=== PATIENT | female | born 1995 | race Caucasian/White ===

== ENCOUNTER 2017-07-21 02:51 | Inpatient (IN) | payer OTHER ==
[~2017-07-21] VITALS: Ht 170.2 cm; Wt 66.3 kg
[2017-07-21 02:58] VITALS: BP 128/81; PULSE 95; RESP 18; TEMP 98.3; O2SAT 98
--- NOTE | 2017-07-21 03:25 | PD ---
HPI Chief Complaint: Psychiatric Symptoms Time Seen by Provider: 03:15 Travel History International Travel<30 days: No Contact w/Intl Traveler<30days: No Traveled to known affect area: No History of Present Illness HPI 22-year-old female with history of depression presents emergency department under Carrasco act for psychiatric evaluation. Patient states she has been having worsening depression over several weeks. She has been having suicidal thoughts. She does not want to discuss the plan. Denies any medical needs. Denies any illicit drug use. Patient has no other symptoms to report. PFSH Past Medical History Anemia: Yes Asthma: No Bipolar Disorder: No Anxiety: No Depression: No Diabetes: No Hypertension: No Shingles: No ?: Unknown Past Surgical History Surgical History: No Previous Surgery Social History Alcohol Use: No Tobacco Use: No Substance Use: No Allergies-Medications (Allergen,Severity, Reaction): Coded Allergies: No Known Allergies (Unverified , 07/21/17) Reported Meds & Prescriptions Reported Meds & Active Scripts Active No Active Prescriptions or Reported Medications Review of Systems Except as stated in HPI: all other systems reviewed are Neg Physical Exam Narrative GENERAL: Well-nourished, well-developed female patient in no acute distress. SKIN: Focused skin assessment warm/dry. HEAD: Normocephalic. EYES: No scleral icterus. No injection or drainage. NECK: Supple, trachea midline. No JVD or lymphadenopathy. CARDIOVASCULAR: Regular rate and rhythm without murmurs, gallops, or rubs. RESPIRATORY: Breath sounds equal bilaterally. No accessory muscle use. GASTROINTESTINAL: Abdomen soft, non-tender, nondistended. MUSCULOSKELETAL: No cyanosis, or edema. BACK: Nontender without obvious deformity. No CVA tenderness. Data Data Last Documented VS Vital Signs Date Time Temp Pulse Resp B/P (MAP) Pulse Ox O2 Delivery O2 Flow Rate FiO2 07/21/17 02:58 98.3 95 18 128/81 (97) 98 Orders Orders Complete Blood Count With Diff (07/21/17 03:03) Comprehensive Metabolic Panel (07/21/17 03:03) Thyroid Stimulating Hormone (07/21/17 03:03) Ed Urine Pregnancytest Poc (07/21/17 03:03) Psych Screen (07/21/17 03:03) Drug Screen, Random Urine (07/21/17 03:03) Alcohol (Ethanol) (07/21/17 03:03) Salicylates (Aspirin) (07/21/17 03:03) Tylenol (Acetaminophen) (07/21/17 03:03) Ibuprofen (Motrin) (07/21/17 04:45) Labs Laboratory Tests Test 07/21/17 03:45 White Blood Count 7.5 TH/MM3 Red Blood Count 4.29 MIL/MM3 Hemoglobin 12.0 GM/DL Hematocrit 35.7 % Mean Corpuscular Volume 83.2 FL Mean Corpuscular Hemoglobin 28.0 PG Mean Corpuscular Hemoglobin Concent 33.7 % Red Cell Distribution Width 14.4 % Platelet Count 388 TH/MM3 Mean Platelet Volume 7.3 FL Neutrophils (%) (Auto) 50.3 % Lymphocytes (%) (Auto) 39.6 % Monocytes (%) (Auto) 7.9 % Eosinophils (%) (Auto) 1.4 % Basophils (%) (Auto) 0.8 % Neutrophils # (Auto) 3.8 TH/MM3 Lymphocytes # (Auto) 3.0 TH/MM3 Monocytes # (Auto) 0.6 TH/MM3 Eosinophils # (Auto) 0.1 TH/MM3 Basophils # (Auto) 0.1 TH/MM3 CBC Comment DIFF FINAL Differential Comment Blood Urea Nitrogen 10 MG/DL Creatinine 0.73 MG/DL Random Glucose 85 MG/DL Total Protein 8.4 GM/DL Albumin 4.4 GM/DL Calcium Level 9.2 MG/DL Alkaline Phosphatase 80 U/L Aspartate Amino Transf (AST/SGOT) 17 U/L Alanine Aminotransferase (ALT/SGPT) 17 U/L Total Bilirubin 0.3 MG/DL Sodium Level 142 MEQ/L Potassium Level 3.9 MEQ/L Chloride Level 106 MEQ/L Carbon Dioxide Level 24.6 MEQ/L Anion Gap 11 MEQ/L Estimat Glomerular Filtration Rate 100 ML/MIN Thyroid Stimulating Hormone 3rd Gen 1.720 uIU/ML Salicylates Level LESS THAN 1.7 MG/DL Acetaminophen Level LESS THAN 2.0 MCG/ML Ethyl Alcohol Level 36 MG/DL [facility] Medical Decision Making Medical Screen Exam Complete: Yes Emergency Medical Condition: Yes Medical Record Reviewed: Yes Differential Diagnosis Mood disorder versus personality disorder versus adjustment reaction disorder Narrative Course 22-year-old female presents emergency department under Carrasco act for psychiatric evaluation. Patient reports worsening depression and suicidal thoughts. She tells me she has a plan but does not want to discuss it. Lab work is complete without acute concern. Patient is medically cleared to undergo psychiatric screening for further evaluation and disposition. Diagnosis Primary Impression: Adjustment reaction Qualified Codes: F43.23 - Adjustment disorder with mixed anxiety and depressed mood Scripts No Active Prescriptions or Reported Meds Condition: Stefanie Silva Jul 21, 2017 03:25
[2017-07-21 03:58] LABS: AUTOMATED NEUTROPHIL # 3.8 TH/MM3 (1.8-7.7); BASOPHIL # 0.1 TH/MM3 (0-0.2); BASOPHIL % 0.8 % (0.0-2.0); EOSINOPHIL # 0.1 TH/MM3 (0-0.4); EOSINOPHIL % 1.4 % (0.0-4.0); HEMATOCRIT 35.7 % (35.0-46.0); LYMPH % 39.6 % (9.0-44.0); MEAN CELL VOLUME 83.2 FL (80.0-100.0); MEAN CORPUSCULAR HGB CONC 33.7 % (32.0-36.0); MEAN PLATELET VOLUME 7.3 FL (7.0-11.0); MONO % 7.9 % (0.0-8.0); MONOCYTE # 0.6 TH/MM3 (0-0.9); NEUT % 50.3 % (16.0-70.0); PLATELET COUNT 388 TH/MM3 (150-450); RED BLOOD COUNT 4.29 MIL/MM3 (4.00-5.30); RED CELL DISTRIBUTION WIDTH 14.4 % (11.6-17.2); WHITE BLOOD COUNT 7.5 TH/MM3 (4.0-11.0)
[2017-07-21 04:32] LABS: ALBUMIN 4.4 GM/DL (3.4-5.0); AST (GOT) 17 U/L (15-37); BICARBONATE 24.6 MEQ/L (21.0-32.0); BLOOD UREA NITROGEN 10 MG/DL (7-18); CALCIUM 9.2 MG/DL (8.5-10.1); CHLORIDE 106 MEQ/L (98-107); CREATININE 0.73 MG/DL (0.50-1.00); GLOMERULAR FILTRATION RATE 100 ML/MIN (>89); GLUCOSE,RANDOM 85 MG/DL (74-106); SODIUM (NA) 142 MEQ/L (136-145)
[2017-07-21 04:34] LABS: ALT (GPT) 17 U/L (10-53)
[2017-07-21 04:43] LABS: ALKALINE PHOSPHATASE 80 U/L (45-117); TOTAL BILIRUBIN ADULT 0.3 MG/DL (0.2-1.0); TOTAL PROTEIN 8.4 GM/DL (6.4-8.2)
[2017-07-21] MEDS ORDERED: IBUPROFEN 800 MG TAB PO ONE (04:45)
[2017-07-21 04:48] LABS: ACETAMINOPHEN LESS THAN 2.0 MCG/ML (10.0-30.0)
[2017-07-21 09:17] VITALS: BP 101/55; PULSE 95; RESP 17; TEMP 97.9; O2SAT 99
[2017-07-21] MEDS ORDERED: IBUPROFEN 600 MG TAB PO ONE (13:45)
[2017-07-21] MEDS ORDERED: FLUMAZENIL 0.5 MG/5 ML VIAL IV PUSH PRN (15:45)
[2017-07-21] MEDS ORDERED: ALUMINUM/MAGNESIUM/SIMETH 30 ML CUP PO PRN (15:45)
[2017-07-21] MEDS ORDERED: LORazepam 2 MG TAB PO PRN (15:45)
[2017-07-21] MEDS ORDERED: NICOTINE 21 MG/24 HR PATCH T-DERMAL PRN (15:45)
[2017-07-21] MEDS ORDERED: LORazepam 1 MG TAB PO PRN (15:45)
[2017-07-21] MEDS ORDERED: LORazepam 2 MG/ML VIAL IM PRN ×4 (15:45)
[2017-07-21] MEDS ORDERED: MAGNESIUM HYDROXIDE SUSP 30 ML CUP PO PRN (15:45)
[2017-07-21 17:59] VITALS: BP 129/71; PULSE 105; RESP 20; O2SAT 100
[2017-07-21] MEDS: ACETAMINOPHEN 325 MG TAB PO PRN (21:39)
[2017-07-21 23:00] VITALS: BP 108/75; PULSE 71; RESP 16; TEMP 97.8; O2SAT 99
[2017-07-21] MEDS: diphenhydrAMINE HCL 50 MG CAP PO PRN (23:18)
[2017-07-22] MEDS: ACETAMINOPHEN 325 MG TAB PO PRN ×2 (03:59→09:10)
[2017-07-22 05:56] VITALS: BP 122/56; PULSE 61; RESP 18; TEMP 97.7; O2SAT 99
[2017-07-22] MEDS: REMOVE OLD NICODERM (NICOTINE) PATCH T-DERMAL SCH (09:00)
[2017-07-22 09:01] LABS: CHOLESTEROL 111 MG/DL (120-200); TRIGLYCERIDES 58 MG/DL (42-150)
[2017-07-22 09:05] LABS: CHOLESTEROL/ HDL RATIO 2.21 RATIO; HDL CHOLESTEROL 50.2 MG/DL (40.0-60.0); LDL CHOLESTEROL 49 MG/DL (0-99)
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
[2017-07-22] MEDS: MULTIVITAMINS/MINERALS THERAPEUTIC TAB PO SCH (09:10)
[2017-07-22] MEDS: THIAMINE HCL 100 MG TAB PO SCH (09:10)
[2017-07-22] MEDS: FOLIC ACID 1 MG TAB PO SCH (09:10)
[2017-07-22] MEDS ORDERED: hydrOXYzine HCL 25 MG TAB PO PRN (13:00)
[2017-07-22] MEDS: IBUPROFEN 600 MG TAB PO PRN ×2 (14:40→22:40)
[2017-07-22] MEDS: BENZOCAINE 7.5% ORAL GEL 9.4 GM TUBE OROPHARYNG PRN (15:00)
[2017-07-22 17:12] LABS: HEMOGLOBIN A1C 4.6 % (4.3-6.0)
[2017-07-22 17:13] VITALS: BP 112/70; PULSE 77; RESP 16; TEMP 98.2; O2SAT 97
[2017-07-22] MEDS ORDERED: traMADol HCL 50 MG TAB PO ONE (20:00)
[2017-07-22] MEDS: diphenhydrAMINE HCL 50 MG CAP PO PRN (20:56)
[2017-07-23 06:12] VITALS: BP 104/62; PULSE 71; RESP 18; TEMP 98.6; O2SAT 98
[2017-07-23] MEDS: FOLIC ACID 1 MG TAB PO SCH (08:39)
[2017-07-23] MEDS: THIAMINE HCL 100 MG TAB PO SCH (08:40)
[2017-07-23] MEDS: MULTIVITAMINS/MINERALS THERAPEUTIC TAB PO SCH (08:40)
[2017-07-23] MEDS: REMOVE OLD NICODERM (NICOTINE) PATCH T-DERMAL SCH (09:00)
--- NOTE | 2017-07-23 11:53 | HHI.PYPN ---
Subjective Chief Complaint: Depression, suicidal ideation Remarks Patient seen and examined with nurse. Chart reviewed. Case discussed with nursing staff. No behavioral issues noted overnight. Case discussed in treatment team. Counselor to provide therapist referral and discharge. On my examination today, patient reports that Atarax "helped a lot" with anxiety. Mood remains somewhat depressed, and we discussed pharmacotherapy aimed at depression. She denies any SI or HI. No side effects from medications. Had some tooth pain overnight, received tramadol, and reports that tooth pain is improved today. No acute physical complaints. Review of Systems Except as stated in HPI: all other systems reviewed are Neg Mental Status Examination Appearance: Appropriate Consciousness: Alert Orientation: x4 Motor Activity: Other (No motoric abnormalities noted) Speech: Unremarkable Language: Adequate Fund of Knowledge: Adequate Attention and Concentration: Adequate Memory: Unremarkable Mood: Other (Depressed) Affect: Appropriate (Fairly full and reactive) Thought Process & Associations: Intact, Logical, Linear Thought Content: Appropriate Hallucination Type: None Delusion Type: None Suicidal Ideation: No Suicidal Plan: No Suicidal Intention: No Homicidal Ideation: No Homicidal Plan: No Homicidal Intention: No Mental Status Exam Remarks Insight and judgment are fair Results Labs Labs reviewed Vitals/IOs Vital Signs Date Time Temp Pulse Resp B/P (MAP) Pulse Ox O2 Delivery O2 Flow Rate FiO2 07/23/17 06:12 98.6 71 18 104/62 (76) 98 07/21/17 17:59 Room Air Assessment & Plan Problem List: (1) Major depressive disorder, recurrent severe without psychotic features ICD Codes: F33.2 - Major depressive disorder, recurrent severe without psychotic features Assessment & Plan After discussion of patient's pharmacotherapeutic options, we settle on a trial of Prozac. R/B/A for medications discussed with patient. Initiate Prozac 20 mg daily. I have emphasized to patient that accepting a psychotropic medication for depression is not a condition of discharge. Continue to monitor on the inpatient unit. Continue other medications and care as ordered. Justification for Cont. Inpt. Medication changes Discharge Planning Possible discharge tomorrow Request HC Surrog/Guard Advoc?: No Matt Madsen MD Jul 23, 2017 11:53
[2017-07-23] MEDS: FLUoxetine HCL 20 MG CAP PO SCH (12:53)
--- NOTE | 2017-07-23 13:50 | PD.TTN ---
Patient Problems 1. Discharge planning 2. Medication compliance 3. Knowledge deficit 4. Lack of coping skills Progress Toward Goals Provider Present: Dr. Jadyn Madsen Provider Input: 07/22/17 patient may start on anti depressant today, anticipaed discharge tomorrow with [facility] and therapy outpatient follow up as discussed with parents of the patient Psychiatric Counselors Present: Angela Fernandez LCSW Psych Therapist Input: 07/22/17 patient is overall insightful and motivated for outpatient care and ok with staying until tomorrow she states she has tooth ache which makes her be more anxious/ unable to focus which is not her usual self Group Spec/RT/OT/YOUNG Present: CATERINA Fox Group Spec/RT/OT/YOUNG Input: 07/22/17 has not attended yesterday still new to Rec Angela Lora LCSW Jul 23, 2017 13:50
[2017-07-23 15:52] VITALS: BP 112/76; PULSE 76; RESP 18; TEMP 98.8
[2017-07-23] MEDS: IBUPROFEN 600 MG TAB PO PRN (17:13)
[2017-07-23] MEDS: BENZOCAINE 7.5% ORAL GEL 9.4 GM TUBE OROPHARYNG PRN (18:04)
[2017-07-23] MEDS: diphenhydrAMINE HCL 50 MG CAP PO PRN (21:56)
[2017-07-24 05:20] VITALS: BP 105/61; PULSE 69; RESP 14; TEMP 97.7; O2SAT 98
[2017-07-24] MEDS: MULTIVITAMINS/MINERALS THERAPEUTIC TAB PO SCH (08:41)
[2017-07-24] MEDS: THIAMINE HCL 100 MG TAB PO SCH (08:42)
[2017-07-24] MEDS: FOLIC ACID 1 MG TAB PO SCH (08:42)
[2017-07-24] MEDS: FLUoxetine HCL 20 MG CAP PO SCH (08:42)
[2017-07-24] MEDS: REMOVE OLD NICODERM (NICOTINE) PATCH T-DERMAL SCH (09:00)
[2017-07-24] MEDS ORDERED: HYDR-3133 PO (10:12)
[2017-07-24] MEDS ORDERED: FLUO20CA12 PO (10:12)
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
== END 2017-07-24 12:55 | disposition home or self-care (01) | DRG 885 ==
LOC: NEPD 02:51 → NEDA 15:40 → H260 23:00
PROVIDERS: ADMIT Psychiatry & Neurology Psychiatry; ATTEND Psychiatry & Neurology Psychiatry
DX: F33.2 Major depressive disorder, recurrent severe without psychotic features (principal); R45.851 Suicidal ideations; K08.89 Other specified disorders of teeth and supporting structures; R63.0 Anorexia
CPT/HCPCS: 80053; 80061; 80307; 83036; 84443; 84703; 85025; Q0163